=== PATIENT | female | born 1995 | race Caucasian/White ===

== ENCOUNTER 2023-11-07 06:00 | Inpatient (IN) | payer MEDICAID ==
[~2023-11-07] VITALS: Ht 167.6 cm; Wt 122.3 kg
[2023-11-07] VITALS (64 sets, daily range): BP systolic 99–159; BP diastolic 55–89; PULSE 78–116; TEMP 97.9–99.2
[~2023-11-07 06:00] MED LIST: GLUCOPHAGE500 MG/TAB PO; LEXAPRO 10MG10 MG; PRENATAL; SYNTHROID 0.0.025 MG PO; SYNTHROID0.1 MG/TAB PO
--- NOTE | 2023-11-07 06:10 | NUR ---
PT AMBULATORY TO UNIT WITH SPOUSE, CHANGED INTO GOWN, ORIENTED TO ROOM AND PLAN OF CARE. PT DENIES FEELING ANY CTX, DENIES LOF, DENIES VAGINAL BLEEDING AND/OR SPOTTING, REPORTS POSITIVE MOVEMENT. EFM AND TOCO SHOW BASELINE 130'S, GOOD ACCELS, NO DECELS, AND IRREGULAR CTX. PT AWAKE AND ALERT X3, POSITIVE ABOUT LABOR TODAY AND ASKING QUESTIONS. SPOUSE SUPPORTIVE AT BEDSIDE.
[2023-11-07 06:51] LABS: BASO # 0.1 K/mm3 (0.0-0.2); BASO % 0.6 % (0.0-2.0); EOS # 0.2 K/mm3 (0.0-0.7); EOS % 1.7 % (0.0-4.0); GRAN % 66.8 % (42.2-75.2); LYMPH # 3.1 K/mm3 (1.2-3.4); LYMPH % 25.5 % (20.0-51.0); MEAN CELL VOLUME 86 fl (80.0-100.0); MEAN CORPUSCULAR HEMOGLOBIN 29 pg (27-31); MEAN CORPUSCULAR HGB CONC 34 g/dl (33.0-37.0); MEAN PLATELET VOLUME 10.1 fl (7.4-10.4); MONO # 0.6 K/mm3 (0.1-0.6); MONO % 4.8 % (1.7-9.3); PLATELET COUNT 260 K/mm3 (130-400); RED BLOOD COUNT 4.17 M/mm3 (4.10-5.30); REDCELL DISTRIBUTION WIDTH-CV 13.8 % (11.5-14.5)
[2023-11-07] MEDS ORDERED: MELATONIN1 MG (06:52)
[2023-11-07 06:53] LABS: HEMATOCRIT 35.8 % (37.0-47.0)
[2023-11-07] MEDS ORDERED: GLUCOPHAGE1000 MG PO (06:54)
[2023-11-07 07:52] LABS: TRICYCLIC ANTIDEPRESS URINE NEGATIVE (NEGATIVE)
--- NOTE | 2023-11-07 08:15 | NUR ---
UNABLE TO TRACE ACCURATE FHR BASELINE, ACCELS, POSSIBLE DECELS, AND VARIATION DUE TO MATERNAL HABITUS AND POSITION. THIS RN AT BEDSIDE LISTENING AND ADJUSTING EFM, AUDIBLE BASELINE HEARD AROUND 130'S, NO AUDIBLE DECELS, PT VS STABLE. 0807 BEDSIDE, SVE 1CM DILATED, AROM AT THIS TIME WELL, SMALL AMOUNT OF CLEAR FLUID. PT TOLERATED WELL AND REPOSITIONED COMFORTABLY
--- NOTE | 2023-11-07 08:45 | NUR ---
UNABLE TO TRACE PT VS DUE TO MATERNAL POSITION AND MOVEMENT. THIS RN AT BEDSIDE EDUCATING PT TO STAY STILL WHILE BLOOD PRESSURE IS TAKEN. PT AWAKE AND ALERT X3
--- NOTE | 2023-11-07 09:15 | NUR ---
UNABLE TO TRACE PT VS DUE TO MOVEMENT AND POSITIION, THIS RN EDUCATES PT TO STAY STILL WHILE VS ARE BEING TAKEN. PT AWAKE AND ALERT X3
--- NOTE | 2023-11-07 09:30 | NUR ---
UNABLE TO TRACE CTX DUE TO PT AMBULATING TO BATHROOM. PT VS STABLE, BABY BASELINE 130'S EFM CAT 1
--- NOTE | 2023-11-07 12:30 | NUR ---
UNABLE TO TRACE EFM DUE TO MATERNAL POSITION AND HABITUS. THIS RN BEDSIDE ATTEMPTING TO TRACE, PT VS STABLE, AUDIBLE FHR AROUND 130'S HEARD BY THIS RN.
--- NOTE | 2023-11-07 14:45 | NUR ---
1421 THIS RN AT PT BEDSIDE ATTEMPTING TO TRACE EFM AND TOCO, UNABLE TO TRACE DUE TO MATERNAL POSITION AND HABITUS. 1425 THIS RN HEARS AUDIBLE DECEL FHR IN 90'S, LOWEST SEEN AT 88BPM. THIS RN CALLS FOR HELP, PT REPOSITIONED LL AND ATTEMPTING TO TRACE FHR. 1430 AUDIBLE DECEL CONTINUES IN 90'S, PITOCIN STOPPED, O2 APPLIED TO PT AT 10L. PT REPOSITIONED FOR CHECK, PCR.MANSHE SVE 4-5/80/-1, FSE INSERTED. 1440 FHR RECOVERED WITH BASELINE OF 140'S, NO ACCELS, NO DECELS, MINIMAL VARIATION, THIS RN STILL AT BEDSIDE ASSESSING PT AND MONITORS. SPOUSE SUPPORTIVE AT BEDSIDE THROUGHOUT THIS CARE. 1452 NOTIFIED OF PROLONGED DECEL, ORDERS TO CONTINUE TO CLOSELY MONITOR AND CONTINUE PITOCIN IN 30 MIN IF FHR STABLE. THIS RN ALSO NOTIFIES THAT IT IS DIFFICULT TO ACCURATELY TRACE CTX ON TOCO AND CURRENTLY ATTEMPTING TO TRACE ADEQUATELY.
--- NOTE | 2023-11-07 15:00 | NUR ---
[id number] THIS RN AT BEDSIDE ADJUSTING TOCO TO TRACE CTX. UNABLE TO TRACE ADEQUATE CTX, NOTIFIED AND RN SUGGESTED [facility] TO ACCURATELY TRACE. [T VS STABLE, FHR BASELINE 140'S, NO ACCELS, NO DECELS, MINIMAL VARIATION. PITOCIN NOT STARTED YET DUE TO MINIMAL VARIATION.
--- NOTE | 2023-11-07 15:45 | NUR ---
UNABLE TO TRACE ACCURATE CTX, THIS RN AT BEDSIDE ATTEMPTING TO TRACE TOCO. NOTIFIED AND RECOMMENDED [facility] INSERT OPTION TO BETTER TRACE CTX.
[2023-11-08] VITALS (33 sets, daily range): BP systolic 112–142; BP diastolic 60–92; PULSE 72–121; TEMP 97.9–98.4
--- NOTE | 2023-11-08 05:30 | NUR ---
0420- PATIENT BEGINS COACHED PUSHING WITH CONTRACTIONS. 0458- DR. CLEMENTS NOTIFIED OF IMPENDING DELIVERY. 0500- FU CATHETER REMOVED. PERICARE PROVIDED. 0510- DR. CLEMENTS AT BEDSIDE. BED BROKEN DOWN FOR DELIVERY. NURSERY NURSE NOTIFIED. 0514- SPONTANEOUS VAGINAL DELIVERY OF VIABLE BABY BOY. NUCHAL CORDX1 EASILY REDUCED. CORD CLAMPED BY DR. CLEMENTS AND CUT BY FOB. BABY TO MOTHER ABDOMEN. DRIED AND STIMULATED. BABY CARES ASSUMED BY NURSERY RN. 0519- SPONTANEOUS DELIVERY OF INTACT PLACENTA THROUGH 2ND DEGREE LACERATION. PITOCIN STARTED AT 333ML/HR PER PROTOCOL. DR. CLEMENTS BEGINS REPAIR OF 2ND DEGREE LACERATION. 0530- RECOVERY STARTED.
--- NOTE | 2023-11-08 06:15 | NUR ---
THIS RN RECIEVES REPORT FROM STEPHANIE. PT DELIVERED VIABLE MALE AT 0514, STEPHANIE REPORTS SHE WILL CHART THE 0530, 0545, 0600 RECOVERY TIMES.
[2023-11-09 07:00] VITALS: BP 142/96; PULSE 94; TEMP 98.4
[2023-11-09 07:55] VITALS: BP 138/88; PULSE 83
[2023-11-09] MEDS ORDERED: IBU800 M1 PO (09:48)
[2023-11-09 10:00] VITALS: BP 108/65; PULSE 84
[2023-11-09 11:39] VITALS: BP 120/70; PULSE 88
== END 2023-11-09 12:30 | disposition home or self-care (01) | DRG 807 ==
LOC: LDR 06:00 → OB 09:52
PROVIDERS: ADMIT Obstetrics & Gynecology
PROC: 10E0XZZ Delivery of Products of Conception, External Approach (ICD-10-PCS; principal; 2023-11-08)
PROC: 0KQM0ZZ Repair Perineum Muscle, Open Approach (ICD-10-PCS; 2023-11-08)
PROC: 3E033VJ Introduction of Other Hormone into Peripheral Vein, Percutaneous Approach (ICD-10-PCS; 2023-11-08)
PROC: 10907ZC Drainage of Amniotic Fluid, Therapeutic from Products of Conception, Via Natural or Artificial Opening (ICD-10-PCS; 2023-11-08)
DX: O99.284 Endocrine, nutritional and metabolic diseases complicating childbirth (principal); Z37.0 Single live birth; O99.214 Obesity complicating childbirth; E03.9 Hypothyroidism, unspecified; O70.1 Second degree perineal laceration during delivery; O99.344 Other mental disorders complicating childbirth; F32.A Depression, unspecified; O76 Abnormality in fetal heart rate and rhythm complicating labor and delivery; O69.81X0 Labor and delivery complicated by cord around neck, without compression, not applicable or unspecified; Z3A.39 39 weeks gestation of pregnancy; Z23 Encounter for immunization
CPT/HCPCS: J2590; J2791; J2795; J7120